=== PATIENT | female | born 1990 | race Caucasian/White ===

== ENCOUNTER 2023-10-08 12:52 | Inpatient (IN) | payer SELFPAY ==
[~2023-10-08] VITALS: Ht 152.4 cm; Wt 102.3 kg
[2023-10-09] VITALS (56 sets, daily range): BP systolic 91–151; BP diastolic 44–90; PULSE 69–121; TEMP 98–101.8
--- NOTE | 2023-10-09 06:20 | NUR ---
PT ARRIVES AMBULATORY TO UNIT FOR SCHEDULE TOLAC DX:IUGR. PT UNABLE TO SPEAK BENINESE, CROATIAN SPEAKING. PER BLUYCE WELL DRILL OPERATOR, PT DENIES CONTRACTIONS, DENIES LOF/VB, AND REPORTS POSITIVE MOVEMENT. PLAN OF CARE DISCUSSED VIA INTERPRETOR. CATEGORY 1 EFM TRACING UPON ARRIVAL.
[2023-10-09] MEDS ORDERED: LR & Oxytocin 500 ML IV SCH (06:45)
[2023-10-09] MEDS ORDERED: LR 1,000 ML IV SCH (06:45)
[2023-10-09 07:15] LABS: HEMOGLOBIN 11.7 g/dl (12.5-16.0); MEAN CELL VOLUME 86 fl (80.0-100.0); MEAN CORPUSCULAR HEMOGLOBIN 27 pg (27-31); MEAN CORPUSCULAR HGB CONC 32 g/dl (33.0-37.0); MEAN PLATELET VOLUME 10.8 fl (7.4-10.4); PLATELET COUNT 190 K/mm3 (130-400); RED BLOOD COUNT 4.29 M/mm3 (4.10-5.30); REDCELL DISTRIBUTION WIDTH-CV 15.1 % (11.5-14.5)
[2023-10-09 07:24] LABS: HEMATOCRIT 36.8 % (37.0-47.0)
--- NOTE | 2023-10-09 07:29 | NUR ---
DR DAVIS AT BEDSIDE. SVE /-2, AROM @ 0720 WITH CLEAR FLUID. IUPC PLACED FOR CLOSE UTERINE MONITORING. PT TOLERATED PROCEDURE WELL. CATEGORY 1 EFM TRACING THROUGHOUT.
[2023-10-09 07:49] LABS: BAND 2 % (0-10); EOSINOPHIL 6 % (0-4); LYMPHOCYTE 25 % (20.0-51.0); MYELOCYTE 1 % (0-0); NEUTROPHILS 60 % (42.0-75.2)
[2023-10-09 07:50] LABS: PLATELET ESTIMATE NORMAL (NORMAL)
[2023-10-09] MEDS ORDERED: ROPivacaine PF 0.2% 200 ML IV ONE (08:30)
--- NOTE | 2023-10-09 08:30 | NUR ---
THIS RN ENTERS ROOM AND SEES ANDI RED BLOOD ON BED PAD WITH CLOTS COMING FROM VAGINA. BED PAD MODERATELY SOAKED,AND 3 LARGE CLOTS NOTED ON BED PAD. PT DENIES PAIN. CONTRACTIONS FIRM AND REGULAR. CATEGORY [address] DAVIS TO BEDSIDE, SVE 380/-2 WITH BLOOD NOTED ON GLOVE. PT TOLERATED EXAM WELL. TO SITTING POSITION ON EDGE OF BED FOR EPIDURAL PLACEMENT. LR BOLUS INFUSING PER PROTOCOL, MATERNAL VITAL SIGNS STABLE. 0840: SINGLE SHOT PER MARGIE LOVE. PT TOLERATED PROCEDURE WELL. MATERNAL VITAL SIGNS STABLE. WILL CONTINUE TO MONITOR BLEEDING CLOSELY. BLEEDING HAS SLOWED AT THIS TIME.
[2023-10-09] MEDS ORDERED: diphenhydrAMINE 50 MG/ML 1 ML VIAL IV PRN (09:30)
[2023-10-09] MEDS ORDERED: Ondansetron 4 MG/2 ML VIAL IV PRN ×2 (09:30→18:30)
[2023-10-09] MEDS ORDERED: Naloxone 0.4 MG/ML VIAL IV PRN ×2 (09:30→18:30)
[2023-10-09] MEDS ORDERED: diphenhydrAMINE 25 MG CAP PO PRN (09:30)
[2023-10-09] MEDS ORDERED: ePHEDrine 50 MG/10 ML VIAL IV PRN (09:30)
[2023-10-09 10:24] LABS: TRICYCLIC ANTIDEPRESS URINE NEGATIVE (NEGATIVE)
--- NOTE | 2023-10-09 14:30 | NUR ---
DR DAVIS AT BEDSIDE. SVE /-2. VORB TO CONTINUE TO INCREASE PITOCIN TO MAX OF 20MU, INCREASE BY 2 X30 MINUTES. PT IN BOBBY POSITION. HEAD WELL APPLIED PER SVE AND "LOWER" THAN PREVIOUS SVE.
[2023-10-09] MEDS ORDERED: Gentamicin/Sodium Chloride 100 ML IV SCH ×2 (16:45→23:30)
[2023-10-09] MEDS ORDERED: Acetaminophen 500 MG TAB PO ONE (16:45)
[2023-10-09] MEDS ORDERED: NS IV SCH (17:00)
[2023-10-09] MEDS ORDERED: GENTAMICIN IV SCH (17:00)
--- NOTE | 2023-10-09 17:00 | NUR ---
DR DAVIS AT BEDSIDE. SVE WITH CONTRACTION 5-6/80/-2. FEBRILE. 100.4 AXILLARY, VAGINA FEELS WARM TO THE TOUCH. AMP AND GENT ABX THERAPY STARTED AT THIS TIME. PO TYLENOL ADMINISTERED PER ORDER. LR INFUSING PER ORDER. TACHYCARDIA WITH RECURRENT DECELERATIONS. MODERATE VARIABILITY. PITOCIN REMAINS RUNNING PER VORB .
--- NOTE | 2023-10-09 17:25 | NUR ---
OB PANEL IV LAB DRAW AT THIS TIME DUE TO CERTAIN UNOBTAINED LABS FOR LIMITED CARE.
--- NOTE | 2023-10-09 18:05 | NUR ---
DR DAVIS AT BEDSIDE, SVE UNCHANGED, /-2. PT REMAINS FEBRILE, 101.6 AXILLARY. TACHYCARDIA. PITOCIN REMAINS OFF PER PREVIOUS VORB. PITOCIN OFF SINCE 1712. AMP, GENT AND PO TYLENOL ADMINISTERED, CURRENT TEMP FOLLOWING DESIZING MACHINE OFFBEARER DOSES. MINIMAL VARIABILITY. SUGGESTS C/S AT THIS TIME. VIA [employer]E INTERPRETOR PT EDUCATED IN DEPTH ON NEED FOR C/S AND AGREEABLE AT THIS TIME TO PROCEED. VORB TO IV CLINDAMYCIN AND TXA PRIOR TO SURGERY. ORDERS PLACED AND PENDING PHARMACY VERIFICATION.
[2023-10-09] MEDS ORDERED: Chloroprocaine PF 3% (30 MG/ML) 20 ML VIAL ONE (18:24)
[2023-10-09] MEDS ORDERED: Phenylephrine 10 MG/ML VIAL ONE (18:24)
[2023-10-09] MEDS ORDERED: NS 10 ML IV ONE (18:26)
[2023-10-09] MEDS ORDERED: Oxytocin 10 UNITS/ML VIAL ONE (18:26)
[2023-10-09] MEDS ORDERED: Tranexamic Acid 1,000 MG/10 ML VIAL ONE (18:26)
[2023-10-09] MEDS ORDERED: Methylergonovine 0.2 MG/ML 1 ML AMPUL ONE (18:27)
[2023-10-09] MEDS ORDERED: Carboprost 250 MCG/ML AMP IM ONE (18:28)
[2023-10-09 18:29] LABS: HIV 1/2 Antibodies Non-Reactive; HIV-1p24 Antigen Non-Reactive
[2023-10-09] MEDS ORDERED: Magnes Hydrox (MOM) 80 MG/ML 30 ML CUP PO PRN (18:30)
[2023-10-09] MEDS ORDERED: Measles/Mumps/Rubella Virus Vaccine Live w Diluent 0.5 ML VIAL SQ SCH (18:30)
[2023-10-09] MEDS ORDERED: oxyCODONE 5 MG TAB PO PRN ×2 (18:30→23:15)
[2023-10-09] MEDS ORDERED: Acetaminophen 500 MG TAB PO PRN (18:30)
[2023-10-09] MEDS ORDERED: Loratadine 10 MG TAB PO PRN (18:30)
[2023-10-09] MEDS ORDERED: LR 1,000 ML IV PRN (18:30)
--- NOTE | 2023-10-09 18:34 | NUR ---
PT TRANSFERED TO OR VIA BED FOR C/S.
[2023-10-09] MEDS ORDERED: Midazolam 2 MG/2 ML VIAL ONE (19:22)
[2023-10-09] MEDS ORDERED: fentaNYL 50 MCG/ML 2 ML VIAL ONE (19:22)
[2023-10-09] MEDS ORDERED: PERCOCET 325 MG1 TA2 PO (20:00)
[2023-10-09] MEDS ORDERED: MOTRIN 800800 MG/TAB PO (20:00)
[2023-10-09] MEDS ORDERED: traZODone 50 MG TAB PO PRN (21:00)
--- NOTE | 2023-10-09 21:00 | NUR ---
CORD STAT SENT TO LAB
--- NOTE | 2023-10-09 23:00 | NUR ---
DR DECKER NOTIFIED PT IS HAVING PAIN AND THERE ARE ONLY ORDERS FOR OXYCODONE 1 TAB. TEMP 101.8. GETTING READY TO GIVE HER TYLENOL. MOTRIN IS NOT DUE UNTIL 0030. ORDERS NOTED TO GIVE MORPHINE 4 MG IVP Q 2 HR PRN PAIN, OXYCODONE 1-2 TABS Q 4 HRS FOR PAIN PRN, CONTINUE AMP AND GENT FOR 24 HOURS FOR TEMP.
[2023-10-09] MEDS ORDERED: Morphine 4 MG/ML VIAL IV PRN (23:15)
[2023-10-10] VITALS (7 sets, daily range): BP systolic 105–122; BP diastolic 55–70; PULSE 72–91; TEMP 97.9–101.8
[2023-10-10] MEDS ORDERED: Ibuprofen 800 MG TAB PO SCH (00:25)
[2023-10-10] MEDS ORDERED: Sennosides/Docusate 8.6-50 MG TAB PO SCH (08:00)
--- NOTE | 2023-10-10 10:45 | NUR ---
RODO ZAPATA SAW PATIENT, SET UP AN APPOINTMENT WITH [facility] ON SUNDAY AT 1500. WILL LET PATIENT KNOW.
--- NOTE | 2023-10-10 15:00 | NUR ---
TAOIST CHARITIES DROPPED OFF BABY GIFT OF DIAPERS, WIPES, CLOTHES, ETC. DELIVERED TO PT AT THIS TIME.
--- NOTE | 2023-10-10 16:49 | NUR ---
Housekeeping Director met with patient and her spouse, Sharan at bedside with the assistance of the [employer] Secondary Set Up Man system. Patient advised they currently live in [place], [place] and have been there about four months. Patient stated they moved from [place], [place] because she has aunts/uncles in [place] who advised there was work available for her , Sharan. Patient has two other children in the home, Lucio (13) and Leslie (8) who she advised were born in [facility]. Lucio and Leslie do no have insurance coverage for primary care at this time. Patient advised Tatum and Leslie are currently staying with her aunt Taty while she is in the hospital. Patient advised she had Medicaid at one point in [place], however she is not sure what happened as she does not currently have coverage. SW consulted [employer] Counselor to meet with patient to reapply for her and to do application for baby. Patient stated she was getting care in [place], however was having to pay out of pocket for visits. Patient stated her care was transferred to the [facility] in [place] as she wanted to try to have a "regular" after she had a for her previous children. Patient advised they do not have supplies like diapers and wipes for baby. They also do not have anywhere for baby to sleep at this time. SW did confirm with RN that they reported having a carseat. RN advised Sharan will bring it in so they can check it. SW discussed resources locally and in her area. Patient was agreeable to SW calling agencies on her behalf to secure supplies. JODI contacted Makenzie at [facility] who is familiar with patient as she was being seen at their agency for care prior to the transfer. Makenzie advised she can meet with patient on Sunday at 1500 to get recertifed for WIC and to provide her with a pac n play. Makenzie advised they also can offer home visits and they are able to do well baby checks there with their nurse practitioner. Makenzie advised their DISTRICT CAPTAIN can even provide care to her older to children if she wishes. JODI inquired about other resources for supplies and Makenzie suggested the Crisis Center in [place]. JODI contacted the Crisis Center and was advised they can assist with supplies like diapers, wipes, formula, etc however they do require the parent to participate in a one time "bible study" which includes a worksheet and ten questions. JODI informed the telephone service representative that patient is swazi speaking and she advised SW that they have a swazi speaking lining parts sewer and translation available. JODI then contacted [facility] in [place] and spoke with Director, Miryam who plans to bring a basket of supplies to patient including diapers, wipes, bottles and baby wash. JODI followed up with patient to provide update on appointment for Sunday and the above resources. Patient verbalized understanding via [employer] Interpretper.
[2023-10-10 17:09] LABS: HEPATITIS B SURFACE ANTIGEN Negative (Negative)
[2023-10-11 08:04] VITALS: BP 96/49; PULSE 55; TEMP 97.9
--- NOTE | 2023-10-11 10:53 | NUR ---
1045 RN USES ENGINE ROOM HELPER TO DISCUSS POC WITH PT. RN EXPLAINS CERTIFICATE WORKSHEET WITH PT AND SIGNIFICANT OTHER AND ENCOURAGES THEM TO FILL IT OUT TODAY AND NOTIFY RN WHEN IT IS COMPLETED. RN ENCOURAGES PT TO TAKE A SHOWER TODAY AND TAKE OFF INCISION DRESSING IN SHOWER. PT VERBALIZES UNDERSTANDING AND HAS NO QUESTIONS AT THIS TIME.
--- NOTE | 2023-10-11 12:27 | NUR ---
RN VISUALIZES INCISION AFTER PT REMOVED DRESSING. INCISION WNL AND HEALING APPROPRIATELY.
--- NOTE | 2023-10-11 15:29 | NUR ---
Taxation Agent contacted Makenzie at [facility] to confirm tomorrow's appointment and secure follow up from Nurse Practitioner at the , Franca Diane. Unfortunately, Makenzie advised Franca would not have availablility to do a one week follow up as she is out next week and only visits intermittently. SW contacted the [facility] office in [place], [place] to inquire about setting baby up with one of their providers. They stated they needed a referral form and clinical information faxed to them, which SW provided. SW contacted the office to follow up and they stated they could not give SW a timeline of decision for acceptance and that it was "up to the providers" to review the information SW sent to them (which they confirmed they received). SW began contacting [place] [facility] providers to explore other options. SW contacted [facility] [place] and they stated they have accepting providers however they do not offer club car attendant services and stated the patients have to provide their own club car attendant or use their phone. JODI contacted [facility] in [place] and was transferred to the triage nurse to discuss possible openings. SW left a message on the voicemail. SW contacted [facility] and they have a few providers taking new patients. SW was advised parents would have to call to answer intake questions and set up initial appointment (#[phone]). There are club car attendant services available with [facility]. SW met with patient utilizing the [employer] Treasury Agent to provide the above update. Ultimately, patient is agreeable to have baby seen in [place], however would still prefer [place] if available as Sharan is the only one that can drive and that has a vehicle. She stated he has to go back to work next week so this could be challenging for them. SW advised she would follow up in the morning with whether or not [facility] had an answer, then assist in scheduling an appointment in [place] if [facility] cannot accept.
[2023-10-11 16:36] VITALS: BP 100/62; PULSE 55
[2023-10-11 21:00] VITALS: BP 100/45; PULSE 87; TEMP 98.8
[2023-10-12 09:00] VITALS: BP 104/61; PULSE 75; TEMP 97.9
--- NOTE | 2023-10-12 16:35 | NUR ---
Emergency Medical Technician Basic contacted [facility] in [place] and scheduled an appointment for baby Donna for October [address] Mohan Becerra. JODI met with patient and Sharan with the assistance of the [place] ichthyologist to explain that this appointment was made in [place] as there was no response yet from the [place] [facility] office. Patient verbalized understanding. SW stressed the importance of follow up for baby and attending this appointment while recognizing the difficulties with transportation and work schedules. JODI provided patient with a typed out appointment reminder in Malaysian for Sunday's appointment. At 1600, JODI contacted the [facility] and confirmed patient made her 1500 appointment and was meeting with JODI Jones now. JODI was advised they will get patient set up with their Nurse Practitioner for following up in the extermination supervisor.
== END 2023-10-12 11:35 | disposition home or self-care (01) | DRG 786 ==
LOC: LDR 10-09 06:10 → OB 10-09 12:51
PROVIDERS: ADMIT Obstetrics & Gynecology
PROC: 10D00Z1 Extraction of Products of Conception, Low, Open Approach (ICD-10-PCS; principal; 2023-10-09)
PROC: 3E033VJ Introduction of Other Hormone into Peripheral Vein, Percutaneous Approach (ICD-10-PCS; 2023-10-09)
PROC: 10907ZC Drainage of Amniotic Fluid, Therapeutic from Products of Conception, Via Natural or Artificial Opening (ICD-10-PCS; 2023-10-09)
DX: O36.5930 Maternal care for other known or suspected poor fetal growth, third trimester, not applicable or unspecified (principal); O41.1230 Chorioamnionitis, third trimester, not applicable or unspecified; Z3A.39 39 weeks gestation of pregnancy; Z37.0 Single live birth; O75.89 Other specified complications of labor and delivery; O34.211 Maternal care for low transverse scar from previous cesarean delivery; O76 Abnormality in fetal heart rate and rhythm complicating labor and delivery; O99.214 Obesity complicating childbirth
CPT/HCPCS: J0290; J0690; J1580; J2210; J2250; J2270; J2371; J2401; J2590; J2795; J3010; J7120

== ENCOUNTER 2023-10-26 11:59 | Emergency (ER) | payer SELFPAY ==
[~2023-10-26] VITALS: Ht 144.8 cm; Wt 72.7 kg
[~2023-10-26 11:59] MED LIST: MOTRIN 800800 MG/TAB PO; PERCOCET 325 MG1 TA2 PO
[2023-10-26 12:11] VITALS: TEMP 98.7
[2023-10-26] MEDS ORDERED: NS 1,000 ML IV ONE (12:45)
[2023-10-26 12:57] LABS: BASO % 0.4 % (0.0-2.0); EOS # 0.2 K/mm3 (0.0-0.7); EOS % 2.1 % (0.0-4.0); GRAN # 8.4 K/mm3 (1.4-6.5); GRAN % 75.8 % (42.2-75.2); LYMPH # 1.5 K/mm3 (1.2-3.4); LYMPH % 13.6 % (20.0-51.0); MEAN CELL VOLUME 83 fl (80.0-100.0); MEAN CORPUSCULAR HEMOGLOBIN 27 pg (27-31); MEAN CORPUSCULAR HGB CONC 33 g/dl (33.0-37.0); MONO # 0.8 K/mm3 (0.1-0.6); MONO % 7.5 % (1.7-9.3); PLATELET COUNT 392 K/mm3 (130-400); RED BLOOD COUNT 3.69 M/mm3 (4.10-5.30); REDCELL DISTRIBUTION WIDTH-CV 13.8 % (11.5-14.5)
[2023-10-26 12:58] LABS: HEMATOCRIT 30.7 % (37.0-47.0)
[2023-10-26 13:14] LABS: ALBUMIN 2.7 g/dL (3.5-5.0); BILIRUBIN,TOTAL 0.6 mg/dL (0.2-1.2); CALCIUM 8.9 mg/dL (8.4-10.2); CREATININE, serum 0.85 mg/dL (0.57-1.11); POTASSIUM 3.7 mEq/L (3.5-4.5); TOTAL PROTEIN 7.2 g/dl (6.2-8.1)
[2023-10-26] MEDS ORDERED: Iohexol 300 - 100 ML VIAL IV ONE (13:52)
[2023-10-26] MEDS ORDERED: NS 100 ML IV SCH (13:54)
[2023-10-26 14:03] LABS: COLLECTION METHOD CLEAN CATCH
[2023-10-26 14:13] LABS: PH 5.5 (5.0-8.5); URINE APPEARANCE CLEAR (CLEAR/HAZY); URINE BLOOD 1+ (NEGATIVE); URINE COLOR Yellow (YELLOW); URINE GLUCOSE Negative (NEGATIVE); URINE KETONE Negative (NEGATIVE); URINE NITRATE Negative (NEGATIVE); URINE PROTEIN(semi-quant) Negative (NEGATIVE); URINE UROBILINOGEN 0.2 E.U/dL (0.2-1.0)
[2023-10-26] MEDS ORDERED: CEPHALEXIN500 M1 PO (15:06)
[2023-10-26] MEDS ORDERED: Doxycycline Hyclate 100 MG in NS 150 ML IV ONE (15:15)
[2023-10-26 16:45] VITALS: BP 104/54; PULSE 78
== END 2023-10-26 16:45 | disposition home or self-care (01) ==
LOC: COL.ER 11:59
PROVIDERS: Physician Assistant
DX: O86.09 Infection of obstetric surgical wound, other surgical site (principal); N39.0 Urinary tract infection, site not specified
CPT/HCPCS: J7030; Q9967

== ENCOUNTER 2023-10-30 18:05 | Emergency (ER) | payer SELFPAY ==
[~2023-10-30] VITALS: Ht 149.9 cm; Wt 72.7 kg
[~2023-10-30 18:05] MED LIST changes: +CEPHALEXIN500 M1 PO
[2023-10-30 18:26] VITALS: TEMP 98.2
[2023-10-30 19:50] VITALS: BP 119/60; PULSE 61
--- NOTE | 2023-10-31 13:42 | NUR ---
layout worker was consulted due to patient presenting to the ER twice this month and she has had trouble with scheduling appointments to her OB. SW reviewed patient's previous notes and noticed patient's baby was also supposed to be seen on 10/15/23 at the fruit washer at [facility]. JODI left a voicemail at [facility] and explained patient is kyrgyz speaking so she has had difficulty with scheduling appointments. JODI left a voicemail with [facility] to determine if patient has kept her appointments with them. JODI contacted Jackie utilizing the [facility] 911 crane helper whom called her and translated for the social economist in Malay. SW asked if patient was able to get her baby to the follow up appointment. Jackie stated she had to cancel it because they had an appointment in [place]. SW asked if they had rescheduled the baby appointment. Jackie stated no because she was trying to find a local doctor in [place] for the baby. JODI asked about the appointment with her OB in [place]. Jackie stated she was on her way to that appointment but had a flat tire so she was late and she ended up just coming to our ER to be checked out. Jackie stated she was feeling better. SW asked if she has her follow up appointment with the OB scheduled, Jackie stated she has an appointment in November scheduled with Dr. Duke. SW asked if she was able to keep her appointments at the health department. Jackie stated her children have appointments but she would not be seen there until November. JODI asked if she would be okay with her re-scheduling the appointment. Jackie asked if it was for the baby or for her. JODI explained she could do both. Jackie stated she was okay with keeping her appointment in November but she gave social economist permission to schedule the baby's follow up appointment. JODI explained this appointment would be at [facility] in [place] as according to the previous social economist she was unable to get her established at a doctor in [place]. Jackie stated that was okay. JODI asked if patient has insurance, she stated no. JODI contacted [facility] whom explained the family took the baby to the first appointment on 10/14 but they cancelled the appointment on 10/23/23. JODI asked if they had reached out to reschedule, [facility] specialty sales representative stated they did not. SW rescheduled the appointment for 11/02/23 at 945 am. JODI was notified they also had an appointment on Sunday for the afternoon, social economist explained she would keep the appointment for Sunday but if the family is unable to do Sunday they could reschedule it for Sunday morning. JODI discussed the language barrier and the [facility] specialty sales representative stated they have numerous workers that speak Malay so that should not be an issue when it comes to scheduling appointments. They also stated they have a social economist at their facility that could assist patient with Medicaid application and any other services needed. JODI contacted Jackie while utilizing the [facility] 911 crane helper. JODI explained her baby was scheduled to be seen at [facility] in [place] on 11/02/23 at 9:45 AM. JODI explained if that does not work with their work schedule there was an appointment on Sunday but Jackie would need to call and reschedule this herself. JODI explained it is very important for her baby to be seen by the doctor as she already missed the one week appointment last week. Jackie stated she would go to this appointment. JODI ensured she had the contact information for [facility] including the address and phone number. JODI repeated the address and phone number twice to the crane helper to ensure Jackie received the correct address. Jackie stated she would go to the appointment. JODI received a voicemail from [facility] stating that they had been unable to reach patient to schedule appointment but they had one scheduled for Sunday at 8:30 am, they stated they sent a text to the patient for this appointment. JODI called [facility] again and left a voicemail stating that she had scheduled an appointment for the baby on Sunday and want to ensure they were able to reach the mother and confirm she is able to get to that appointment with them. JODI made CPS report due to concerns that the family may miss baby appointments. INTAKE ID [id number]
--- NOTE | 2023-10-31 15:08 | NUR ---
expeller worker was notified by [facility] that they have been unable to reach Jackie to notify her of her appointment on Sunday at 8:30 am and asked if social media strategist could assist. JODI utilized [employer] lang interpreter and attempted to contact Jackie. She did not answer. [employer] Literary Agent left a detailed voicemail stating that Jackie has an appointment with [facility] on Sunday at 8:30 am and Jackie's baby still has their appointment on Wednesday 11/01 at 9:45 am.
== END 2023-10-30 19:50 | disposition home or self-care (01) ==
LOC: COL.ER 18:05
DX: O86.00 Infection of obstetric surgical wound, unspecified (principal)